=== PATIENT | male | born 1975 | race Caucasian/White ===

== ENCOUNTER 2022-01-28 15:14 | Inpatient (IN) | payer OTHER ==
[~2022-01-28] VITALS: Ht 175.3 cm; Wt 80.1 kg
[2022-01-28 16:38] VITALS: BP 133/82
[2022-01-28] MEDS ORDERED: ACETAMINOPHEN 650 MG/20.3 ML SOLUTION UDCUP PEG PRN (19:15)
[2022-01-28] MEDS: DOCUSATE SODIUM 100 MG/10 ML LIQUID UDCUP PEG SCH ×2 (21:00→21:32)
[2022-01-28] MEDS: SENNA 218 MG/5 ML LIQUID ORAL.SYG PEG SCH (21:00)
[2022-01-28] MEDS: OXYGEN THERAPY IH SCH (21:31)
[2022-01-28] MEDS: MELATONIN 3 MG TABLET PEG PRN (21:31)
[2022-01-28] MEDS: LevETIRAcetam 100 MG/ML 5 ML SOLUTION UDCUP PEG SCH (21:32)
[2022-01-28] MEDS: ETHYL ALCOHOL 62% ANTISEPTIC NASAL SANITIZER 0.6 ML AMPUL NASAL SCH (21:32)
[2022-01-28 23:43] VITALS: BP 133/82
[2022-01-29] VITALS (7 sets, daily range): BP systolic 117–142; BP diastolic 68–95
[2022-01-29] MEDS ORDERED: CloNIDine HCL 0.1 MG TABLET PEG PRN
[2022-01-29] MEDS ORDERED: HEPARIN SODIUM,PORCINE 5,000 UNITS/ML VIAL SQ SCH
[2022-01-29] MEDS ORDERED: PNEUMOCOCCAL VACCINE POLYVALENT 0.5 ML VIAL [PPSV23] IM. ONE (00:15)
[2022-01-29 07:01] LABS: BASOPHILS % (AUTO) 0.5 % (0.0-2.0); EOSINOPHILS % (AUTO) 3.6 % (1.0-6.0); HEMATOCRIT 31.9 % (41-53); HEMOGLOBIN 10.9 g/dL (13.5-17.5); LYMPHOCYTES # (AUTO) 3.4 K/uL (1.0-4.8); LYMPHOCYTES % (AUTO) 33.7 % (22.0-44.0); MEAN CORPUSCULAR HEMOGLOBIN 29.5 pg (26.0-34.0); MEAN CORPUSCULAR HGB CONC 34.2 G/dL (31.0-37.0); MEAN CORPUSCULAR VOLUME 86 fL (80-100); MONOCYTES # (AUTO) 0.9 K/uL (0.1-1.0); MONOCYTES % (AUTO) 8.8 % (2.0-9.0); NEUTROPHILS # (AUTO) 5.3 K/uL (1.8-7.7); NEUTROPHILS % (AUTO) 53.4 % (40.0-70.0); PLATELET COUNT (AUTO) 353 K/uL (150-450); RED CELL DISTRIBUTION WIDTH 16.3 % (11.5-14.5)
[2022-01-29 07:15] LABS: ALBUMIN 3.4 g/dL (3.4-5.0); BILIRUBIN,TOTAL 0.4 mg/dL (0.1-1.0); CREATININE 8.26 mg/dL (0.60-1.30); POTASSIUM 5.1 mmol/L (3.5-5.1); TOTAL PROTEIN, SERUM 9.3 g/dL (6.4-8.2)
[2022-01-29 07:21] LABS: CALCIUM, TOTAL 11.9 mg/dL (8.8-10.5)
[2022-01-29] MEDS: LevETIRAcetam 100 MG/ML 5 ML SOLUTION UDCUP PEG SCH ×2 (08:18→21:44)
[2022-01-29] MEDS: PYRIDOXINE HCL 50 MG TABLET PEG SCH (08:19)
[2022-01-29] MEDS: FOLIC ACID 1 MG TABLET PEG SCH (08:19)
[2022-01-29] MEDS: DOCUSATE SODIUM 100 MG/10 ML LIQUID UDCUP PEG SCH ×2 (08:20→21:44)
[2022-01-29] MEDS: LANSOPRAZOLE 30 MG SOLUBLE TABLET PEG SCH (08:21)
[2022-01-29] MEDS: ETHYL ALCOHOL 62% ANTISEPTIC NASAL SANITIZER 0.6 ML AMPUL NASAL SCH ×2 (08:22→21:49)
[2022-01-29] MEDS: OXYGEN THERAPY IH SCH ×2 (08:22→21:49)
[2022-01-29] MEDS: AmLODIPine BESYLATE 10 MG TABLET PEG SCH (08:22)
[2022-01-29] MEDS: ASPIRIN 81 MG CHEWABLE TABLET PEG SCH (08:25)
[2022-01-29] MEDS: ATORVASTATIN CALCIUM 20 MG TABLET PEG SCH (08:25)
[2022-01-29] MEDS: HEPARIN SODIUM,PORCINE 5,000 UNITS/ML VIAL SQ SCH ×2 (08:26→21:45)
[2022-01-29] MEDS ORDERED: FOLIC ACID 1 MG TABLET PEG SCH (09:00)
[2022-01-29] MEDS ORDERED: EPOETIN ALFA 10,000 UNITS/ML 2 ML VIAL SQ SCH (09:00)
[2022-01-29] MEDS ORDERED: HEPARIN SODIUM,PORCINE 1,000 UNITS/ML VIAL IVP ONE (12:00)
[2022-01-29] MEDS ORDERED: SODIUM CHLORIDE 0.9% 1,000 ML ONE ×2 (16:42)
[2022-01-29] MEDS: SENNA 218 MG/5 ML LIQUID ORAL.SYG PEG SCH (21:00)
[2022-01-29] MEDS: MELATONIN 3 MG TABLET PEG PRN (21:45)
[2022-01-29] MEDS: CHLORHEXIDINE GLUCONATE 4% 118 ML TOPICAL LIQUID TP SCH (21:46)
[2022-01-29] MEDS ORDERED: HEPARIN SODIUM,PORCINE 1,000 UNITS/ML VIAL IVCATH ONE ×2 (22:15)
[2022-01-30 01:00] VITALS: BP 131/89
[2022-01-30 06:34] LABS: HEMOGLOBIN A1C 5.6 % (3.8-5.6)
[2022-01-30 06:51] LABS: PHOSPHORUS 3.6 mg/dL (2.5-4.9)
[2022-01-30] MEDS: LevETIRAcetam 100 MG/ML 5 ML SOLUTION UDCUP PEG SCH ×2 (08:23→21:25)
[2022-01-30] MEDS: ETHYL ALCOHOL 62% ANTISEPTIC NASAL SANITIZER 0.6 ML AMPUL NASAL SCH ×2 (08:23→21:24)
[2022-01-30] MEDS: FOLIC ACID 1 MG TABLET PEG SCH (08:24)
[2022-01-30] MEDS: LANSOPRAZOLE 30 MG SOLUBLE TABLET PEG SCH (08:24)
[2022-01-30] MEDS: DOCUSATE SODIUM 100 MG/10 ML LIQUID UDCUP PEG SCH ×2 (08:24→21:00)
[2022-01-30] MEDS: PYRIDOXINE HCL 50 MG TABLET PEG SCH (08:24)
[2022-01-30] MEDS: ASPIRIN 81 MG CHEWABLE TABLET PEG SCH (08:25)
[2022-01-30] MEDS: HEPARIN SODIUM,PORCINE 5,000 UNITS/ML VIAL SQ SCH ×2 (08:25→21:24)
[2022-01-30] MEDS: AmLODIPine BESYLATE 10 MG TABLET PEG SCH (08:25)
[2022-01-30] MEDS: OXYGEN THERAPY IH SCH ×2 (08:26→21:25)
[2022-01-30] MEDS: ATORVASTATIN CALCIUM 20 MG TABLET PEG SCH (08:26)
[2022-01-30 10:46] VITALS: BP 118/76
[2022-01-30 11:15] LABS: APPEARANCE,URINE CLEAR (CLEAR); BILIRUBIN,URINE NEGATIVE (NEGATIVE); GLUCOSE, URINE (UA) NEGATIVE (NEGATIVE); KETONES,URINE NEGATIVE (NEGATIVE); LEUKOCYTE ESTERASE ,URINE TRACE (NEGATIVE); NITRATE,URINE NEGATIVE (NEGATIVE); OCCULT BLOOD,URINE SMALL (NEGATIVE); PROTEIN,URINE >600,SEE CONFIRM mg/dL (NEGATIVE); SPECIFIC GRAVITIY, URINE 1.023 (1.003-1.030); UROBILINOGEN,URINE <=1.0 mg/dL (<=1.0)
[2022-01-30 11:16] LABS: CREATININE,URINE RANDOM 125.4 mg/dL (30.0-125.0)
[2022-01-30 11:31] LABS: BACTERIA,URINE None Seen /HPF (None Seen); RBC,URINE 0-2 /HPF (0-2); SQUAMOUS EPITHELIAL CELL,UR Few /LPF (None Seen); SULFOSALICYLIC ACID,URINE 3+ (Negative); WBC,URINE 0-2 /HPF (0-5)
[2022-01-30 16:30] VITALS: BP 124/86
[2022-01-30] MEDS: SENNA 218 MG/5 ML LIQUID ORAL.SYG PEG SCH (21:00)
[2022-01-30] MEDS: CHLORHEXIDINE GLUCONATE 4% 118 ML TOPICAL LIQUID TP SCH (21:23)
[2022-01-31] VITALS (11 sets, daily range): BP systolic 112–138; BP diastolic 63–86
[2022-01-31] MEDS: OXYGEN THERAPY IH SCH ×2 (08:17→21:19)
[2022-01-31] MEDS: ATORVASTATIN CALCIUM 20 MG TABLET PEG SCH (08:18)
[2022-01-31] MEDS: ASPIRIN 81 MG CHEWABLE TABLET PEG SCH (08:18)
[2022-01-31] MEDS: AmLODIPine BESYLATE 10 MG TABLET PEG SCH (08:18)
[2022-01-31] MEDS: HEPARIN SODIUM,PORCINE 5,000 UNITS/ML VIAL SQ SCH ×2 (08:18→21:18)
[2022-01-31] MEDS: DOCUSATE SODIUM 100 MG/10 ML LIQUID UDCUP PEG SCH ×2 (08:19→21:00)
[2022-01-31] MEDS: LevETIRAcetam 100 MG/ML 5 ML SOLUTION UDCUP PEG SCH ×2 (08:19→21:19)
[2022-01-31] MEDS: LANSOPRAZOLE 30 MG SOLUBLE TABLET PEG SCH (08:20)
[2022-01-31] MEDS: PYRIDOXINE HCL 50 MG TABLET PEG SCH (08:20)
[2022-01-31] MEDS: ETHYL ALCOHOL 62% ANTISEPTIC NASAL SANITIZER 0.6 ML AMPUL NASAL SCH ×2 (08:21→21:20)
[2022-01-31] MEDS: FOLIC ACID 1 MG TABLET PEG SCH (08:21)
[2022-01-31 09:48] LABS: POTASSIUM 4.5 mmol/L (3.5-5.1)
[2022-01-31 09:49] LABS: CREATININE 7.83 mg/dL (0.60-1.30)
[2022-01-31 09:51] LABS: CALCIUM, TOTAL 11.7 mg/dL (8.8-10.5)
[2022-01-31] MEDS ORDERED: HEPARIN SODIUM,PORCINE 1,000 UNITS/ML VIAL IVP ONE (12:00)
[2022-01-31] MEDS ORDERED: SODIUM CHLORIDE 0.9% 1,000 ML ONE ×2 (12:47→13:05)
[2022-01-31] MEDS ORDERED: HEPARIN SODIUM,PORCINE 1,000 UNITS/ML VIAL IVCATH ONE ×2 (15:15)
[2022-01-31] MEDS: SENNA 218 MG/5 ML LIQUID ORAL.SYG PEG SCH (21:00)
[2022-01-31] MEDS: MELATONIN 3 MG TABLET PEG PRN (21:18)
[2022-01-31] MEDS: CHLORHEXIDINE GLUCONATE 4% 118 ML TOPICAL LIQUID TP SCH (21:19)
[2022-02-01 00:47] VITALS: BP 115/72
[2022-02-01] MEDS: ASPIRIN 81 MG CHEWABLE TABLET PEG SCH (08:21)
[2022-02-01] MEDS: AmLODIPine BESYLATE 10 MG TABLET PEG SCH (08:21)
[2022-02-01] MEDS: ATORVASTATIN CALCIUM 20 MG TABLET PEG SCH (08:21)
[2022-02-01] MEDS: HEPARIN SODIUM,PORCINE 5,000 UNITS/ML VIAL SQ SCH ×2 (08:21→21:29)
[2022-02-01] MEDS: DOCUSATE SODIUM 100 MG/10 ML LIQUID UDCUP PEG SCH ×2 (08:22→21:32)
[2022-02-01] MEDS: LevETIRAcetam 100 MG/ML 5 ML SOLUTION UDCUP PEG SCH ×2 (08:22→21:31)
[2022-02-01] MEDS: LANSOPRAZOLE 30 MG SOLUBLE TABLET PEG SCH (08:23)
[2022-02-01] MEDS: FOLIC ACID 1 MG TABLET PEG SCH (08:23)
[2022-02-01] MEDS: ETHYL ALCOHOL 62% ANTISEPTIC NASAL SANITIZER 0.6 ML AMPUL NASAL SCH ×2 (08:24→21:31)
[2022-02-01] MEDS: PYRIDOXINE HCL 50 MG TABLET PEG SCH (08:24)
[2022-02-01 08:25] LABS: CALCIUM, TOTAL 10.8 mg/dL (8.8-10.5); CREATININE 5.29 mg/dL (0.60-1.30); POTASSIUM 4.4 mmol/L (3.5-5.1)
[2022-02-01] MEDS: OXYGEN THERAPY IH SCH ×2 (08:25→21:30)
[2022-02-01 08:30] VITALS: BP 123/68
[2022-02-01 16:30] VITALS: BP 112/61
[2022-02-01] MEDS: SENNA 218 MG/5 ML LIQUID ORAL.SYG PEG SCH (21:00)
[2022-02-01] MEDS: CHLORHEXIDINE GLUCONATE 4% 118 ML TOPICAL LIQUID TP SCH (21:32)
[2022-02-02] VITALS: BP 113/70
[2022-02-02] MEDS: FOLIC ACID 1 MG TABLET PEG SCH (08:17)
[2022-02-02] MEDS: ETHYL ALCOHOL 62% ANTISEPTIC NASAL SANITIZER 0.6 ML AMPUL NASAL SCH ×2 (08:17→21:46)
[2022-02-02] MEDS: OXYGEN THERAPY IH SCH ×2 (08:17→21:47)
[2022-02-02] MEDS: PYRIDOXINE HCL 50 MG TABLET PEG SCH (08:18)
[2022-02-02] MEDS: AmLODIPine BESYLATE 10 MG TABLET PEG SCH (08:18)
[2022-02-02] MEDS: LANSOPRAZOLE 30 MG SOLUBLE TABLET PEG SCH (08:18)
[2022-02-02] MEDS: ATORVASTATIN CALCIUM 20 MG TABLET PEG SCH (08:18)
[2022-02-02] MEDS: LevETIRAcetam 100 MG/ML 5 ML SOLUTION UDCUP PEG SCH ×2 (08:18→21:46)
[2022-02-02] MEDS: ASPIRIN 81 MG CHEWABLE TABLET PEG SCH (08:18)
[2022-02-02] MEDS: HEPARIN SODIUM,PORCINE 5,000 UNITS/ML VIAL SQ SCH ×2 (08:19→21:46)
[2022-02-02] MEDS: DOCUSATE SODIUM 100 MG/10 ML LIQUID UDCUP PEG SCH ×2 (08:19→21:46)
[2022-02-02 10:25] VITALS: BP 133/76
[2022-02-02 13:06] LABS: ALPHA-1 (IFE & PEP) 0.3 g/dL (0.0-0.4); BETA (IFE & ELP) 0.8 g/dL (0.7-1.3); GAMMA GLOBULINS (IFE & ELP) 2.1 g/dL (0.4-1.8); IGM (IMMUNOFIXATION) 144 mg/dL (20-172)
[2022-02-02 16:30] VITALS: BP 126/61
[2022-02-02] MEDS: SENNA 218 MG/5 ML LIQUID ORAL.SYG PEG SCH (21:00)
[2022-02-02] MEDS: CHLORHEXIDINE GLUCONATE 4% 118 ML TOPICAL LIQUID TP SCH (21:48)
[2022-02-03] VITALS (13 sets, daily range): BP systolic 107–147; BP diastolic 70–96
[2022-02-03] MEDS: DOCUSATE SODIUM 100 MG/10 ML LIQUID UDCUP PEG SCH ×2 (10:15→21:18)
[2022-02-03] MEDS: PYRIDOXINE HCL 50 MG TABLET PEG SCH (10:15)
[2022-02-03] MEDS: LevETIRAcetam 100 MG/ML 5 ML SOLUTION UDCUP PEG SCH ×2 (10:15→21:18)
[2022-02-03] MEDS: LANSOPRAZOLE 30 MG SOLUBLE TABLET PEG SCH (10:15)
[2022-02-03] MEDS: FOLIC ACID 1 MG TABLET PEG SCH (10:16)
[2022-02-03] MEDS: ASPIRIN 81 MG CHEWABLE TABLET PEG SCH (10:16)
[2022-02-03] MEDS: HEPARIN SODIUM,PORCINE 5,000 UNITS/ML VIAL SQ SCH ×2 (10:17→21:18)
[2022-02-03] MEDS: ETHYL ALCOHOL 62% ANTISEPTIC NASAL SANITIZER 0.6 ML AMPUL NASAL SCH ×2 (10:17→21:17)
[2022-02-03] MEDS ORDERED: HEPARIN SODIUM,PORCINE 1,000 UNITS/ML VIAL IVP ONE (12:00)
[2022-02-03] MEDS: OXYGEN THERAPY IH SCH ×2 (13:26→21:25)
[2022-02-03] MEDS: ATORVASTATIN CALCIUM 20 MG TABLET PEG SCH (13:27)
[2022-02-03] MEDS: AmLODIPine BESYLATE 10 MG TABLET PEG SCH (13:27)
[2022-02-03] MEDS ORDERED: SODIUM CHLORIDE 0.9% 1,000 ML ONE ×2 (15:43)
[2022-02-03] MEDS: SENNA 218 MG/5 ML LIQUID ORAL.SYG PEG SCH (21:00)
[2022-02-03] MEDS: CHLORHEXIDINE GLUCONATE 4% 118 ML TOPICAL LIQUID TP SCH (21:26)
[2022-02-03] MEDS: MELATONIN 3 MG TABLET PEG PRN (22:08)
[2022-02-04 01:06] VITALS: BP 119/76
[2022-02-04 07:01] LABS: CALCIUM, TOTAL 10.4 mg/dL (8.8-10.5); CREATININE 5.16 mg/dL (0.60-1.30); POTASSIUM 4.3 mmol/L (3.5-5.1)
[2022-02-04] MEDS: ETHYL ALCOHOL 62% ANTISEPTIC NASAL SANITIZER 0.6 ML AMPUL NASAL SCH ×2 (07:46→21:05)
[2022-02-04] MEDS: ASPIRIN 81 MG CHEWABLE TABLET PEG SCH (07:47)
[2022-02-04] MEDS: DOCUSATE SODIUM 100 MG/10 ML LIQUID UDCUP PEG SCH ×2 (07:48→21:00)
[2022-02-04] MEDS: LevETIRAcetam 100 MG/ML 5 ML SOLUTION UDCUP PEG SCH ×2 (07:48→21:04)
[2022-02-04] MEDS: FOLIC ACID 1 MG TABLET PEG SCH (07:48)
[2022-02-04] MEDS: ATORVASTATIN CALCIUM 20 MG TABLET PEG SCH (07:49)
[2022-02-04] MEDS: PYRIDOXINE HCL 50 MG TABLET PEG SCH (07:50)
[2022-02-04] MEDS: LANSOPRAZOLE 30 MG SOLUBLE TABLET PEG SCH (07:51)
[2022-02-04] MEDS: HEPARIN SODIUM,PORCINE 5,000 UNITS/ML VIAL SQ SCH ×2 (07:51→21:04)
[2022-02-04 08:30] VITALS: BP 102/63
[2022-02-04] MEDS: AmLODIPine BESYLATE 10 MG TABLET PEG SCH (09:00)
[2022-02-04 09:55] VITALS: BP 109/59
[2022-02-04 16:17] VITALS: BP 122/64
[2022-02-04] MEDS: SENNA 218 MG/5 ML LIQUID ORAL.SYG PEG SCH (21:00)
[2022-02-04] MEDS: MELATONIN 3 MG TABLET PEG PRN (21:03)
[2022-02-04] MEDS: CHLORHEXIDINE GLUCONATE 4% 118 ML TOPICAL LIQUID TP SCH (21:06)
[2022-02-05] VITALS (14 sets, daily range): BP systolic 99–129; BP diastolic 57–82
[2022-02-05] MEDS: LevETIRAcetam 100 MG/ML 5 ML SOLUTION UDCUP PEG SCH ×2 (08:29→21:23)
[2022-02-05] MEDS: PYRIDOXINE HCL 50 MG TABLET PEG SCH (08:30)
[2022-02-05] MEDS: FOLIC ACID 1 MG TABLET PEG SCH (08:30)
[2022-02-05] MEDS: LANSOPRAZOLE 30 MG SOLUBLE TABLET PEG SCH (08:30)
[2022-02-05] MEDS: ASPIRIN 81 MG CHEWABLE TABLET PEG SCH (08:30)
[2022-02-05] MEDS: DOCUSATE SODIUM 100 MG/10 ML LIQUID UDCUP PEG SCH ×2 (08:30→21:00)
[2022-02-05] MEDS: ETHYL ALCOHOL 62% ANTISEPTIC NASAL SANITIZER 0.6 ML AMPUL NASAL SCH ×2 (08:31→21:23)
[2022-02-05] MEDS: AmLODIPine BESYLATE 10 MG TABLET PEG SCH (08:31)
[2022-02-05] MEDS: HEPARIN SODIUM,PORCINE 5,000 UNITS/ML VIAL SQ SCH ×2 (08:31→21:21)
[2022-02-05] MEDS: ATORVASTATIN CALCIUM 20 MG TABLET PEG SCH (08:31)
[2022-02-05] MEDS ORDERED: SODIUM CHLORIDE 0.9% 1,000 ML ONE (14:26)
[2022-02-05] MEDS: SENNA 218 MG/5 ML LIQUID ORAL.SYG PEG SCH (21:00)
[2022-02-05] MEDS: CHLORHEXIDINE GLUCONATE 4% 118 ML TOPICAL LIQUID TP SCH (21:22)
[2022-02-05] MEDS: MELATONIN 3 MG TABLET PEG PRN (21:28)
[2022-02-06 07:46] VITALS: BP 103/72
[2022-02-06] MEDS: ATORVASTATIN CALCIUM 20 MG TABLET PEG SCH (08:54)
[2022-02-06] MEDS: FOLIC ACID 1 MG TABLET PEG SCH (08:54)
[2022-02-06] MEDS: HEPARIN SODIUM,PORCINE 5,000 UNITS/ML VIAL SQ SCH ×2 (08:54→21:05)
[2022-02-06] MEDS: LANSOPRAZOLE 30 MG SOLUBLE TABLET PEG SCH (08:54)
[2022-02-06] MEDS: ASPIRIN 81 MG CHEWABLE TABLET PEG SCH (08:55)
[2022-02-06] MEDS: AmLODIPine BESYLATE 10 MG TABLET PEG SCH (08:55)
[2022-02-06] MEDS: LevETIRAcetam 100 MG/ML 5 ML SOLUTION UDCUP PEG SCH (08:55)
[2022-02-06] MEDS: PYRIDOXINE HCL 50 MG TABLET PEG SCH (08:55)
[2022-02-06] MEDS: ETHYL ALCOHOL 62% ANTISEPTIC NASAL SANITIZER 0.6 ML AMPUL NASAL SCH ×2 (08:56→21:03)
[2022-02-06] MEDS: DOCUSATE SODIUM 100 MG/10 ML LIQUID UDCUP PEG SCH (08:56)
[2022-02-06] MEDS ORDERED: BUMETANIDE 1 MG TABLET PEG SCH (09:00)
[2022-02-06] MEDS ORDERED: HEPARIN SODIUM,PORCINE 1,000 UNITS/ML VIAL IVP ONE (14:45)
[2022-02-06 16:30] VITALS: BP 127/64
[2022-02-06] MEDS ORDERED: MELATONIN 3 MG TABLET PO PRN (16:45)
[2022-02-06] MEDS ORDERED: CloNIDine HCL 0.1 MG TABLET PO PRN (18:00)
[2022-02-06] MEDS: SENNA 187 MG TABLET PO SCH (21:00)
[2022-02-06] MEDS: DOCUSATE SODIUM 100 MG CAPSULE PO SCH (21:00)
[2022-02-06] MEDS: LevETIRAcetam 500 MG TABLET PO SCH (21:03)
[2022-02-06] MEDS: CHLORHEXIDINE GLUCONATE 4% 118 ML TOPICAL LIQUID TP SCH (21:17)
[2022-02-07] VITALS (13 sets, daily range): BP systolic 105–122; BP diastolic 63–80
[2022-02-07 06:58] LABS: BASOPHILS % (AUTO) 0.3 % (0.0-2.0); HEMATOCRIT 28.4 % (41-53); HEMOGLOBIN 9.4 g/dL (13.5-17.5); LYMPHOCYTES # (AUTO) 2.9 K/uL (1.0-4.8); LYMPHOCYTES % (AUTO) 34.9 % (22.0-44.0); MEAN CORPUSCULAR HEMOGLOBIN 29.1 pg (26.0-34.0); MEAN CORPUSCULAR HGB CONC 33.3 G/dL (31.0-37.0); MEAN CORPUSCULAR VOLUME 87 fL (80-100); MONOCYTES # (AUTO) 0.9 K/uL (0.1-1.0); MONOCYTES % (AUTO) 11.2 % (2.0-9.0); NEUTROPHILS # (AUTO) 4.2 K/uL (1.8-7.7); NEUTROPHILS % (AUTO) 50.6 % (40.0-70.0); PLATELET COUNT (AUTO) 270 K/uL (150-450); RED BLOOD CELL COUNT(AUTO) 3.25 MIL/uL (4.50-5.90); RED CELL DISTRIBUTION WIDTH 16.6 % (11.5-14.5)
[2022-02-07 07:14] LABS: CALCIUM, TOTAL 10.4 mg/dL (8.8-10.5); CREATININE 7.02 mg/dL (0.60-1.30); POTASSIUM 4.7 mmol/L (3.5-5.1)
[2022-02-07] MEDS: LevETIRAcetam 500 MG TABLET PO SCH ×2 (08:09→20:27)
[2022-02-07] MEDS: ETHYL ALCOHOL 62% ANTISEPTIC NASAL SANITIZER 0.6 ML AMPUL NASAL SCH ×2 (08:09→20:27)
[2022-02-07] MEDS: ASPIRIN 81 MG CHEWABLE TABLET PO SCH (08:09)
[2022-02-07] MEDS: FOLIC ACID 1 MG TABLET PO SCH (08:09)
[2022-02-07] MEDS: PYRIDOXINE HCL 50 MG TABLET PO SCH (08:10)
[2022-02-07] MEDS: LANSOPRAZOLE 30 MG CAPSULE PO SCH (08:10)
[2022-02-07] MEDS: HEPARIN SODIUM,PORCINE 5,000 UNITS/ML VIAL SQ SCH ×2 (08:10→20:28)
[2022-02-07] MEDS: AmLODIPine BESYLATE 10 MG TABLET PO SCH (08:11)
[2022-02-07] MEDS: BUMETANIDE 1 MG TABLET PO SCH (08:11)
[2022-02-07] MEDS: ATORVASTATIN CALCIUM 20 MG TABLET PO SCH (08:12)
[2022-02-07] MEDS: DOCUSATE SODIUM 100 MG CAPSULE PO SCH ×2 (08:12→20:30)
[2022-02-07] MEDS ORDERED: SODIUM CHLORIDE 0.9% 1,000 ML ONE ×2 (13:21)
[2022-02-07] MEDS ORDERED: HEPARIN SODIUM,PORCINE 1,000 UNITS/ML VIAL IVCATH ONE ×2 (16:00)
[2022-02-07] MEDS: CHLORHEXIDINE GLUCONATE 4% 118 ML TOPICAL LIQUID TP SCH (20:29)
[2022-02-07] MEDS: SENNA 187 MG TABLET PO SCH (20:30)
[2022-02-08 06:20] VITALS: BP 103/68
[2022-02-08 08:06] LABS: FREE KAPPA LIGHT CHAINS,S 388.9 mg/L (3.3-19.4); FREE KAPPA/LAMBDA LT CHN RATIO 1.51 (0.26-1.65)
[2022-02-08] MEDS: ETHYL ALCOHOL 62% ANTISEPTIC NASAL SANITIZER 0.6 ML AMPUL NASAL SCH ×2 (08:15→20:04)
[2022-02-08] MEDS: FOLIC ACID 1 MG TABLET PO SCH (08:16)
[2022-02-08] MEDS: HEPARIN SODIUM,PORCINE 5,000 UNITS/ML VIAL SQ SCH ×2 (08:16→20:04)
[2022-02-08] MEDS: ASPIRIN 81 MG CHEWABLE TABLET PO SCH (08:16)
[2022-02-08] MEDS: PYRIDOXINE HCL 50 MG TABLET PO SCH (08:16)
[2022-02-08] MEDS: LevETIRAcetam 500 MG TABLET PO SCH (08:17)
[2022-02-08] MEDS: LANSOPRAZOLE 30 MG CAPSULE PO SCH (08:17)
[2022-02-08] MEDS: ATORVASTATIN CALCIUM 20 MG TABLET PO SCH (08:17)
[2022-02-08] MEDS: AmLODIPine BESYLATE 10 MG TABLET PO SCH (08:17)
[2022-02-08] MEDS: BUMETANIDE 1 MG TABLET PO SCH (08:17)
[2022-02-08] MEDS: DOCUSATE SODIUM 100 MG CAPSULE PO SCH ×2 (08:18→20:05)
[2022-02-08 08:43] VITALS: BP 103/62
[2022-02-08] MEDS ORDERED: MIDAZOLAM HCL 2 MG/2 ML VIAL IVP ONE (12:00)
[2022-02-08] MEDS ORDERED: FentaNYL CITRATE PF 100 MCG/2 ML VIAL IVP ONE (12:00)
[2022-02-08] MEDS ORDERED: KETAMINE HCL 50 MG/ML 10 ML VIAL IVP ONE (12:00)
[2022-02-08 16:07] VITALS: BP 101/63
[2022-02-08] MEDS: LevETIRAcetam 250 MG TABLET PO SCH (20:04)
[2022-02-08] MEDS: SENNA 187 MG TABLET PO SCH (20:05)
[2022-02-08] MEDS: CHLORHEXIDINE GLUCONATE 4% 118 ML TOPICAL LIQUID TP SCH (20:09)
[2022-02-09 00:54] VITALS: BP 115/69
[2022-02-09 08:30] VITALS: BP 121/79
[2022-02-09] MEDS: ETHYL ALCOHOL 62% ANTISEPTIC NASAL SANITIZER 0.6 ML AMPUL NASAL SCH ×2 (08:36→20:40)
[2022-02-09] MEDS: BUMETANIDE 1 MG TABLET PO SCH (08:37)
[2022-02-09] MEDS: DOCUSATE SODIUM 100 MG CAPSULE PO SCH ×2 (08:37→20:40)
[2022-02-09] MEDS: ASPIRIN 81 MG CHEWABLE TABLET PO SCH (08:37)
[2022-02-09] MEDS: FOLIC ACID 1 MG TABLET PO SCH (08:38)
[2022-02-09] MEDS: LevETIRAcetam 250 MG TABLET PO SCH ×2 (08:38→20:40)
[2022-02-09] MEDS: HEPARIN SODIUM,PORCINE 5,000 UNITS/ML VIAL SQ SCH ×2 (08:39→20:40)
[2022-02-09] MEDS: ATORVASTATIN CALCIUM 20 MG TABLET PO SCH (08:39)
[2022-02-09] MEDS: PYRIDOXINE HCL 50 MG TABLET PO SCH (08:40)
[2022-02-09] MEDS: LANSOPRAZOLE 30 MG CAPSULE PO SCH (08:40)
[2022-02-09] MEDS ORDERED: AmLODIPine BESYLATE 5 MG TABLET PO SCH (09:00)
[2022-02-09 16:30] VITALS: BP 115/75
[2022-02-09] MEDS: SENNA 187 MG TABLET PO SCH (20:40)
[2022-02-09] MEDS: CHLORHEXIDINE GLUCONATE 4% 118 ML TOPICAL LIQUID TP SCH (20:40)
[2022-02-10] VITALS (13 sets, daily range): BP systolic 106–140; BP diastolic 65–89
[2022-02-10] MEDS: ETHYL ALCOHOL 62% ANTISEPTIC NASAL SANITIZER 0.6 ML AMPUL NASAL SCH ×2 (08:04→20:35)
[2022-02-10] MEDS: DOCUSATE SODIUM 100 MG CAPSULE PO SCH ×2 (08:04→20:34)
[2022-02-10] MEDS: ASPIRIN 81 MG CHEWABLE TABLET PO SCH (08:04)
[2022-02-10] MEDS: BUMETANIDE 1 MG TABLET PO SCH (08:04)
[2022-02-10] MEDS: FOLIC ACID 1 MG TABLET PO SCH (08:05)
[2022-02-10] MEDS: LevETIRAcetam 250 MG TABLET PO SCH ×2 (08:06→20:37)
[2022-02-10] MEDS: ATORVASTATIN CALCIUM 20 MG TABLET PO SCH (08:06)
[2022-02-10] MEDS: PYRIDOXINE HCL 50 MG TABLET PO SCH (08:07)
[2022-02-10] MEDS: HEPARIN SODIUM,PORCINE 5,000 UNITS/ML VIAL SQ SCH ×2 (08:07→20:37)
[2022-02-10] MEDS: LANSOPRAZOLE 30 MG CAPSULE PO SCH (08:07)
[2022-02-10] MEDS: AmLODIPine BESYLATE 2.5 MG TABLET PO SCH (08:08)
[2022-02-10] MEDS ORDERED: HEPARIN SODIUM,PORCINE 1,000 UNITS/ML VIAL IVP ONE (14:48)
[2022-02-10] MEDS ORDERED: SODIUM CHLORIDE 0.9% 1,000 ML ONE ×2 (15:11)
[2022-02-10] MEDS ORDERED: HEPARIN SODIUM,PORCINE 1,000 UNITS/ML VIAL IVCATH ONE ×2 (18:30)
[2022-02-10] MEDS: SENNA 187 MG TABLET PO SCH (20:35)
[2022-02-10] MEDS: CHLORHEXIDINE GLUCONATE 4% 118 ML TOPICAL LIQUID TP SCH (20:37)
[2022-02-11 03:03] VITALS: BP 111/73
[2022-02-11 08:01] VITALS: BP 127/74
[2022-02-11] MEDS: AmLODIPine BESYLATE 2.5 MG TABLET PO SCH (08:11)
[2022-02-11] MEDS: ETHYL ALCOHOL 62% ANTISEPTIC NASAL SANITIZER 0.6 ML AMPUL NASAL SCH ×2 (08:11→21:34)
[2022-02-11] MEDS: ASPIRIN 81 MG CHEWABLE TABLET PO SCH (08:11)
[2022-02-11] MEDS: BUMETANIDE 1 MG TABLET PO SCH (08:12)
[2022-02-11] MEDS: PYRIDOXINE HCL 50 MG TABLET PO SCH (08:12)
[2022-02-11] MEDS: HEPARIN SODIUM,PORCINE 5,000 UNITS/ML VIAL SQ SCH ×2 (08:12→21:34)
[2022-02-11] MEDS: DOCUSATE SODIUM 100 MG CAPSULE PO SCH ×2 (08:12→21:00)
[2022-02-11] MEDS: LevETIRAcetam 250 MG TABLET PO SCH ×2 (08:13→21:35)
[2022-02-11] MEDS: LANSOPRAZOLE 30 MG CAPSULE PO SCH (08:13)
[2022-02-11] MEDS: ATORVASTATIN CALCIUM 20 MG TABLET PO SCH (08:13)
[2022-02-11] MEDS: FOLIC ACID 1 MG TABLET PO SCH (08:13)
[2022-02-11 16:30] VITALS: BP 138/77
[2022-02-11] MEDS: SENNA 187 MG TABLET PO SCH (21:00)
[2022-02-11] MEDS: CHLORHEXIDINE GLUCONATE 4% 118 ML TOPICAL LIQUID TP SCH (21:35)
[2022-02-12] VITALS (13 sets, daily range): BP systolic 116–135; BP diastolic 67–89
[2022-02-12] MEDS: ASPIRIN 81 MG CHEWABLE TABLET PO SCH (08:36)
[2022-02-12] MEDS: LANSOPRAZOLE 30 MG CAPSULE PO SCH (08:36)
[2022-02-12] MEDS: PYRIDOXINE HCL 50 MG TABLET PO SCH (08:36)
[2022-02-12] MEDS: FOLIC ACID 1 MG TABLET PO SCH (08:36)
[2022-02-12] MEDS: DOCUSATE SODIUM 100 MG CAPSULE PO SCH ×2 (08:37→20:13)
[2022-02-12] MEDS: HEPARIN SODIUM,PORCINE 5,000 UNITS/ML VIAL SQ SCH ×2 (08:37→20:15)
[2022-02-12] MEDS: BUMETANIDE 1 MG TABLET PO SCH (08:37)
[2022-02-12] MEDS: ETHYL ALCOHOL 62% ANTISEPTIC NASAL SANITIZER 0.6 ML AMPUL NASAL SCH ×2 (08:37→20:15)
[2022-02-12] MEDS: ATORVASTATIN CALCIUM 20 MG TABLET PO SCH (08:37)
[2022-02-12] MEDS: LevETIRAcetam 250 MG TABLET PO SCH ×2 (08:37→20:14)
[2022-02-12] MEDS ORDERED: SODIUM CHLORIDE 0.9% 2,000 ML ONE (15:05)
[2022-02-12] MEDS: SENNA 187 MG TABLET PO SCH (20:13)
[2022-02-12] MEDS: CHLORHEXIDINE GLUCONATE 4% 118 ML TOPICAL LIQUID TP SCH (20:15)
[2022-02-12] MEDS ORDERED: HEPARIN SODIUM,PORCINE 1,000 UNITS/ML VIAL IVP ONE (23:16)
[2022-02-13 05:27] VITALS: BP 115/77
[2022-02-13 08:05] VITALS: BP 119/67
[2022-02-13] MEDS: ETHYL ALCOHOL 62% ANTISEPTIC NASAL SANITIZER 0.6 ML AMPUL NASAL SCH ×2 (08:31→20:40)
[2022-02-13] MEDS: BUMETANIDE 1 MG TABLET PO SCH (08:32)
[2022-02-13] MEDS: ASPIRIN 81 MG CHEWABLE TABLET PO SCH (08:32)
[2022-02-13] MEDS: ATORVASTATIN CALCIUM 20 MG TABLET PO SCH (08:32)
[2022-02-13] MEDS: LevETIRAcetam 250 MG TABLET PO SCH ×2 (08:32→20:40)
[2022-02-13] MEDS: FOLIC ACID 1 MG TABLET PO SCH (08:32)
[2022-02-13] MEDS: LANSOPRAZOLE 30 MG CAPSULE PO SCH (08:33)
[2022-02-13] MEDS: DOCUSATE SODIUM 100 MG CAPSULE PO SCH ×2 (08:33→20:42)
[2022-02-13] MEDS: HEPARIN SODIUM,PORCINE 5,000 UNITS/ML VIAL SQ SCH ×2 (08:33→20:41)
[2022-02-13] MEDS: PYRIDOXINE HCL 50 MG TABLET PO SCH (08:33)
[2022-02-13 16:07] VITALS: BP 124/63
[2022-02-13] MEDS: SENNA 187 MG TABLET PO SCH (20:42)
[2022-02-13] MEDS: CHLORHEXIDINE GLUCONATE 4% 118 ML TOPICAL LIQUID TP SCH (20:42)
[2022-02-14] VITALS (13 sets, daily range): BP systolic 118–141; BP diastolic 68–93
[2022-02-14] MEDS: DOCUSATE SODIUM 100 MG CAPSULE PO SCH ×2 (09:00→20:24)
[2022-02-14] MEDS: ETHYL ALCOHOL 62% ANTISEPTIC NASAL SANITIZER 0.6 ML AMPUL NASAL SCH ×2 (09:14→20:23)
[2022-02-14] MEDS: ASPIRIN 81 MG CHEWABLE TABLET PO SCH (09:14)
[2022-02-14] MEDS: LANSOPRAZOLE 30 MG CAPSULE PO SCH (09:14)
[2022-02-14] MEDS: LevETIRAcetam 250 MG TABLET PO SCH ×2 (09:15→20:24)
[2022-02-14] MEDS: FOLIC ACID 1 MG TABLET PO SCH (09:15)
[2022-02-14] MEDS: PYRIDOXINE HCL 50 MG TABLET PO SCH (09:15)
[2022-02-14] MEDS: BUMETANIDE 1 MG TABLET PO SCH (09:15)
[2022-02-14] MEDS: ATORVASTATIN CALCIUM 20 MG TABLET PO SCH (09:15)
[2022-02-14] MEDS: HEPARIN SODIUM,PORCINE 5,000 UNITS/ML VIAL SQ SCH ×2 (09:16→20:24)
[2022-02-14 09:38] LABS: BASOPHILS % (AUTO) 0.2 % (0.0-2.0); EOSINOPHILS % (AUTO) 1.7 % (1.0-6.0); HEMATOCRIT 28.7 % (41-53); HEMOGLOBIN 9.7 g/dL (13.5-17.5); LYMPHOCYTES # (AUTO) 2.5 K/uL (1.0-4.8); LYMPHOCYTES % (AUTO) 33.9 % (22.0-44.0); MEAN CORPUSCULAR HEMOGLOBIN 29.4 pg (26.0-34.0); MEAN CORPUSCULAR HGB CONC 33.8 G/dL (31.0-37.0); MEAN CORPUSCULAR VOLUME 87 fL (80-100); MONOCYTES # (AUTO) 0.6 K/uL (0.1-1.0); MONOCYTES % (AUTO) 8.1 % (2.0-9.0); NEUTROPHILS # (AUTO) 4.2 K/uL (1.8-7.7); NEUTROPHILS % (AUTO) 56.1 % (40.0-70.0); PLATELET COUNT (AUTO) 313 K/uL (150-450); RED BLOOD CELL COUNT(AUTO) 3.31 MIL/uL (4.50-5.90); RED CELL DISTRIBUTION WIDTH 16.3 % (11.5-14.5)
[2022-02-14 09:47] LABS: CALCIUM, TOTAL 9.9 mg/dL (8.8-10.5); CREATININE 6.35 mg/dL (0.60-1.30); POTASSIUM 5.2 mmol/L (3.5-5.1)
[2022-02-14] MEDS ORDERED: HEPARIN SODIUM,PORCINE 1,000 UNITS/ML VIAL IVP ONE (12:00)
[2022-02-14] MEDS ORDERED: SODIUM CHLORIDE 0.9% 2,000 ML ONE (12:38)
[2022-02-14] MEDS ORDERED: HEPARIN SODIUM,PORCINE 1,000 UNITS/ML VIAL IVCATH ONE ×2 (13:30)
[2022-02-14] MEDS: SENNA 187 MG TABLET PO SCH (20:24)
[2022-02-14] MEDS: CHLORHEXIDINE GLUCONATE 4% 118 ML TOPICAL LIQUID TP SCH (20:25)
[2022-02-15] VITALS: BP 125/71
[2022-02-15 08:00] VITALS: BP 125/77
[2022-02-15] MEDS: ETHYL ALCOHOL 62% ANTISEPTIC NASAL SANITIZER 0.6 ML AMPUL NASAL SCH ×2 (08:32→20:07)
[2022-02-15] MEDS: BUMETANIDE 1 MG TABLET PO SCH (08:33)
[2022-02-15] MEDS: FOLIC ACID 1 MG TABLET PO SCH (08:33)
[2022-02-15] MEDS: ASPIRIN 81 MG CHEWABLE TABLET PO SCH (08:33)
[2022-02-15] MEDS: LevETIRAcetam 250 MG TABLET PO SCH ×2 (08:33→20:07)
[2022-02-15] MEDS: ATORVASTATIN CALCIUM 20 MG TABLET PO SCH (08:33)
[2022-02-15] MEDS: LANSOPRAZOLE 30 MG CAPSULE PO SCH (08:33)
[2022-02-15] MEDS: PYRIDOXINE HCL 50 MG TABLET PO SCH (08:33)
[2022-02-15] MEDS: HEPARIN SODIUM,PORCINE 5,000 UNITS/ML VIAL SQ SCH ×2 (08:34→20:07)
[2022-02-15] MEDS: DOCUSATE SODIUM 100 MG CAPSULE PO SCH ×2 (09:00→20:08)
[2022-02-15 16:22] VITALS: BP 106/85
[2022-02-15] MEDS: CHLORHEXIDINE GLUCONATE 4% 118 ML TOPICAL LIQUID TP SCH (20:08)
[2022-02-15] MEDS: SENNA 187 MG TABLET PO SCH (20:08)
[2022-02-16] VITALS: BP 128/76
[2022-02-16] MEDS: ETHYL ALCOHOL 62% ANTISEPTIC NASAL SANITIZER 0.6 ML AMPUL NASAL SCH ×2 (07:59→20:56)
[2022-02-16] MEDS: PYRIDOXINE HCL 50 MG TABLET PO SCH (08:00)
[2022-02-16] MEDS: DOCUSATE SODIUM 100 MG CAPSULE PO SCH ×2 (08:00→20:58)
[2022-02-16] MEDS: ASPIRIN 81 MG CHEWABLE TABLET PO SCH (08:00)
[2022-02-16] MEDS: FOLIC ACID 1 MG TABLET PO SCH (08:00)
[2022-02-16] MEDS: LANSOPRAZOLE 30 MG CAPSULE PO SCH (08:00)
[2022-02-16] MEDS: BUMETANIDE 1 MG TABLET PO SCH (08:01)
[2022-02-16] MEDS: ATORVASTATIN CALCIUM 20 MG TABLET PO SCH (08:01)
[2022-02-16] MEDS: LevETIRAcetam 250 MG TABLET PO SCH ×2 (08:01→20:56)
[2022-02-16] MEDS: HEPARIN SODIUM,PORCINE 5,000 UNITS/ML VIAL SQ SCH (08:01)
[2022-02-16 09:47] VITALS: BP 133/85
[2022-02-16 12:15] LABS: BASOPHILS % (AUTO) 0.3 % (0.0-2.0); EOSINOPHILS % (AUTO) 1.7 % (1.0-6.0); HEMATOCRIT 28.5 % (41-53); HEMOGLOBIN 9.5 g/dL (13.5-17.5); LYMPHOCYTES # (AUTO) 3.5 K/uL (1.0-4.8); LYMPHOCYTES % (AUTO) 39.9 % (22.0-44.0); MEAN CORPUSCULAR HEMOGLOBIN 29.3 pg (26.0-34.0); MEAN CORPUSCULAR HGB CONC 33.5 G/dL (31.0-37.0); MEAN CORPUSCULAR VOLUME 88 fL (80-100); MONOCYTES # (AUTO) 0.7 K/uL (0.1-1.0); MONOCYTES % (AUTO) 7.7 % (2.0-9.0); NEUTROPHILS # (AUTO) 4.4 K/uL (1.8-7.7); NEUTROPHILS % (AUTO) 50.4 % (40.0-70.0); PLATELET COUNT (AUTO) 336 K/uL (150-450); RED BLOOD CELL COUNT(AUTO) 3.26 MIL/uL (4.50-5.90); RED CELL DISTRIBUTION WIDTH 16.2 % (11.5-14.5)
[2022-02-16] MEDS ORDERED: LIDOCAINE/PF 1% 30 ML VIAL ONE (12:33)
[2022-02-16] MEDS ORDERED: HEPARIN SODIUM,PORCINE 5,000 UNITS/ML VIAL ONE (12:34)
[2022-02-16 12:38] LABS: PROTHROMBIN TIME 10.8 SEC (9.4-11.6)
[2022-02-16 12:38] LABS: COVID AG,FIA SOURCE NASAL SWAB
[2022-02-16 12:42] LABS: CALCIUM, TOTAL 10.1 mg/dL (8.8-10.5); CREATININE 6.2 mg/dL (0.60-1.30); POTASSIUM 4.9 mmol/L (3.5-5.1)
[2022-02-16] MEDS ORDERED: SODIUM CHLORIDE 0.9% 1,000 ML ONE (14:51)
[2022-02-16] MEDS ORDERED: MEPERIDINE-PF 25 MG/ML VIAL IVP PRN (17:15)
[2022-02-16] MEDS ORDERED: HYDROmorphone 2 MG/ML VIAL IVP PRN (17:15)
[2022-02-16] MEDS ORDERED: FentaNYL CITRATE PF 100 MCG/2 ML VIAL IVP PRN (17:15)
[2022-02-16 18:30] VITALS: BP 130/75
[2022-02-16] MEDS: OXYGEN THERAPY IH SCH (20:00)
[2022-02-16] MEDS: SENNA 187 MG TABLET PO SCH (20:59)
[2022-02-16] MEDS: CHLORHEXIDINE GLUCONATE 4% 118 ML TOPICAL LIQUID TP SCH (20:59)
[2022-02-16] MEDS ORDERED: HEPARIN SODIUM,PORCINE 1,000 UNITS/ML VIAL IVP ONE (22:50)
[2022-02-16] MEDS ORDERED: 0.9% SODIUM CHLORIDE 10 ML VIAL IV ONE (22:50)
[2022-02-17] VITALS (12 sets, daily range): BP systolic 112–138; BP diastolic 57–84
[2022-02-17] MEDS: OXYGEN THERAPY IH SCH ×2 (08:00→20:00)
[2022-02-17 08:35] LABS: BASOPHILS % (AUTO) 0.7 % (0.0-2.0); EOSINOPHILS % (AUTO) 1.7 % (1.0-6.0); HEMATOCRIT 26.8 % (41-53); HEMOGLOBIN 9.1 g/dL (13.5-17.5); MEAN CORPUSCULAR HEMOGLOBIN 29.9 pg (26.0-34.0); MEAN CORPUSCULAR VOLUME 88 fL (80-100); MONOCYTES # (AUTO) 0.4 K/uL (0.1-1.0); MONOCYTES % (AUTO) 6.9 % (2.0-9.0); NEUTROPHILS # (AUTO) 3.8 K/uL (1.8-7.7); NEUTROPHILS % (AUTO) 59.7 % (40.0-70.0); PLATELET COUNT (AUTO) 284 K/uL (150-450); RED BLOOD CELL COUNT(AUTO) 3.05 MIL/uL (4.50-5.90); RED CELL DISTRIBUTION WIDTH 16.1 % (11.5-14.5)
[2022-02-17] MEDS: DOCUSATE SODIUM 100 MG CAPSULE PO SCH ×2 (08:40→21:00)
[2022-02-17 08:46] LABS: CALCIUM, TOTAL 9.9 mg/dL (8.8-10.5); CREATININE 7.44 mg/dL (0.60-1.30); MAGNESIUM 1.7 mg/dL (1.80-2.40); PHOSPHORUS 3.6 mg/dL (2.5-4.9); POTASSIUM 5.1 mmol/L (3.5-5.1)
[2022-02-17] MEDS ORDERED: HEPARIN SODIUM,PORCINE 5,000 UNITS/ML VIAL SQ SCH (09:00)
[2022-02-17] MEDS: ETHYL ALCOHOL 62% ANTISEPTIC NASAL SANITIZER 0.6 ML AMPUL NASAL SCH ×2 (09:06→21:28)
[2022-02-17] MEDS: LANSOPRAZOLE 30 MG CAPSULE PO SCH (09:06)
[2022-02-17] MEDS: ACETAMINOPHEN 325 MG TABLET PO PRN (09:06)
[2022-02-17] MEDS: PYRIDOXINE HCL 50 MG TABLET PO SCH (09:06)
[2022-02-17] MEDS: ASPIRIN 81 MG CHEWABLE TABLET PO SCH (09:06)
[2022-02-17] MEDS: FOLIC ACID 1 MG TABLET PO SCH (09:07)
[2022-02-17] MEDS: ATORVASTATIN CALCIUM 20 MG TABLET PO SCH (09:07)
[2022-02-17] MEDS: BUMETANIDE 1 MG TABLET PO SCH (09:07)
[2022-02-17] MEDS: LevETIRAcetam 250 MG TABLET PO SCH ×2 (09:07→21:27)
[2022-02-17] MEDS ORDERED: SODIUM CHLORIDE 0.9% 2,000 ML ONE (12:29)
[2022-02-17] MEDS ORDERED: HEPARIN SODIUM,PORCINE 1,000 UNITS/ML VIAL IVP ONE (16:43)
[2022-02-17] MEDS ORDERED: HEPARIN SODIUM,PORCINE 1,000 UNITS/ML VIAL IVCATH ONE ×2 (20:30)
[2022-02-17] MEDS: SENNA 187 MG TABLET PO SCH (21:00)
[2022-02-17] MEDS: CHLORHEXIDINE GLUCONATE 4% 118 ML TOPICAL LIQUID TP SCH (21:28)
[2022-02-18] VITALS: BP 129/77
[2022-02-18] MEDS ORDERED: ASPI-1450 PO (00:52)
[2022-02-18] MEDS ORDERED: BUME1TAB34 PO (00:52)
[2022-02-18] MEDS ORDERED: ATOR20TA86 PO (00:52)
[2022-02-18] MEDS ORDERED: FOLI-130 PO ×2 (00:58→09:24)
[2022-02-18] MEDS ORDERED: PYRI-6 PO (00:58)
[2022-02-18] MEDS ORDERED: LEVE250T4 PO (00:58)
[2022-02-18] MEDS ORDERED: LANS30CA56 PO (00:58)
[2022-02-18 08:00] VITALS: BP 137/89
[2022-02-18] MEDS: OXYGEN THERAPY IH SCH ×2 (08:00→20:00)
[2022-02-18] MEDS: LANSOPRAZOLE 30 MG CAPSULE PO SCH (09:00)
[2022-02-18] MEDS: DOCUSATE SODIUM 100 MG CAPSULE PO SCH ×2 (09:00→20:32)
[2022-02-18] MEDS: FOLIC ACID 1 MG TABLET PO SCH (09:00)
[2022-02-18] MEDS: BUMETANIDE 1 MG TABLET PO SCH (09:00)
[2022-02-18] MEDS: ATORVASTATIN CALCIUM 20 MG TABLET PO SCH (09:00)
[2022-02-18] MEDS: LevETIRAcetam 250 MG TABLET PO SCH ×2 (09:00→20:34)
[2022-02-18] MEDS: ETHYL ALCOHOL 62% ANTISEPTIC NASAL SANITIZER 0.6 ML AMPUL NASAL SCH ×2 (09:00→20:32)
[2022-02-18] MEDS: PYRIDOXINE HCL 50 MG TABLET PO SCH (09:00)
[2022-02-18] MEDS ORDERED: SENN-187 PO (09:24)
[2022-02-18] MEDS ORDERED: PYRI-13 PO (09:24)
[2022-02-18] MEDS ORDERED: BUME1TAB6 PO (09:24)
[2022-02-18] MEDS ORDERED: DOCU-385 PO (09:24)
[2022-02-18] MEDS ORDERED: LANS30CA55 PO (09:24)
[2022-02-18] MEDS ORDERED: LEVE250T PO (09:24)
[2022-02-18] MEDS ORDERED: ATOR20TA65 PO (09:24)
[2022-02-18] MEDS ORDERED: FentaNYL CITRATE PF 100 MCG/2 ML VIAL ONE (14:35)
[2022-02-18] MEDS ORDERED: GELATIN SPONGE,ABSORBABLE 12-7 MM TP ONE (14:35)
[2022-02-18] MEDS ORDERED: NALOXONE HCL 0.4 MG/ML VIAL ONE (14:35)
[2022-02-18] MEDS ORDERED: FLUMAZENIL 0.1 MG/ML 5 ML VIAL IVP ONE (14:35)
[2022-02-18] MEDS ORDERED: MIDAZOLAM HCL 2 MG/2 ML VIAL ONE (14:35)
[2022-02-18] MEDS ORDERED: LIDOCAINE/PF 1% 30 ML VIAL ONE (14:36)
[2022-02-18] MEDS ORDERED: HEPARIN SODIUM,PORCINE 1,000 UNITS/ML 10 ML VIAL ONE (15:57)
[2022-02-18] MEDS ORDERED: METOPROLOL TARTRATE 5 MG/5 ML VIAL ONE ×2 (16:27→16:51)
[2022-02-18 17:50] VITALS: BP 119/83
[2022-02-18] MEDS ORDERED: MIDAZOLAM HCL 2 MG/2 ML VIAL IVP ONE ×2 (18:00)
[2022-02-18] MEDS ORDERED: METOPROLOL TARTRATE 5 MG/5 ML VIAL IVP ONE ×3 (18:00)
[2022-02-18] MEDS ORDERED: FentaNYL CITRATE PF 100 MCG/2 ML VIAL IVP ONE ×2 (18:00)
[2022-02-18] MEDS: CHLORHEXIDINE GLUCONATE 4% 118 ML TOPICAL LIQUID TP SCH (20:34)
[2022-02-18] MEDS: SENNA 187 MG TABLET PO SCH (20:34)
[2022-02-19] VITALS (13 sets, daily range): BP systolic 109–142; BP diastolic 62–93
[2022-02-19] MEDS: ACETAMINOPHEN 325 MG TABLET PO PRN (05:06)
[2022-02-19] MEDS: DOCUSATE SODIUM 100 MG CAPSULE PO SCH ×2 (09:00→21:00)
[2022-02-19] MEDS: OXYGEN THERAPY IH SCH ×2 (09:13→20:00)
[2022-02-19] MEDS: ETHYL ALCOHOL 62% ANTISEPTIC NASAL SANITIZER 0.6 ML AMPUL NASAL SCH ×2 (09:13→21:57)
[2022-02-19] MEDS: FOLIC ACID 1 MG TABLET PO SCH (09:14)
[2022-02-19] MEDS: PYRIDOXINE HCL 50 MG TABLET PO SCH (09:14)
[2022-02-19] MEDS: LANSOPRAZOLE 30 MG CAPSULE PO SCH (09:14)
[2022-02-19] MEDS: ATORVASTATIN CALCIUM 20 MG TABLET PO SCH (09:15)
[2022-02-19] MEDS: BUMETANIDE 1 MG TABLET PO SCH (09:15)
[2022-02-19] MEDS: LevETIRAcetam 250 MG TABLET PO SCH ×2 (09:15→21:57)
[2022-02-19] MEDS ORDERED: SODIUM CHLORIDE 0.9% 1,000 ML ONE ×2 (14:36)
[2022-02-19 16:51] LABS: BASOPHILS % (AUTO) 0.4 % (0.0-2.0); EOSINOPHILS % (AUTO) 2.3 % (1.0-6.0); LYMPHOCYTES # (AUTO) 1.9 K/uL (1.0-4.8); LYMPHOCYTES % (AUTO) 34.1 % (22.0-44.0); MEAN CORPUSCULAR HEMOGLOBIN 29.3 pg (26.0-34.0); MEAN CORPUSCULAR HGB CONC 32.9 G/dL (31.0-37.0); MEAN CORPUSCULAR VOLUME 89 fL (80-100); MONOCYTES # (AUTO) 0.6 K/uL (0.1-1.0); MONOCYTES % (AUTO) 10.7 % (2.0-9.0); NEUTROPHILS % (AUTO) 52.5 % (40.0-70.0); PLATELET COUNT (AUTO) 231 K/uL (150-450); RED BLOOD CELL COUNT(AUTO) 2.28 MIL/uL (4.50-5.90); RED CELL DISTRIBUTION WIDTH 16.5 % (11.5-14.5)
[2022-02-19 16:53] LABS: HEMATOCRIT 20.3 % (41-53); HEMOGLOBIN 6.7 g/dL (13.5-17.5)
[2022-02-19 16:57] LABS: ALBUMIN 2.8 g/dL (3.4-5.0); BILIRUBIN,TOTAL 0.2 mg/dL (0.1-1.0); CALCIUM, TOTAL 9.3 mg/dL (8.8-10.5); CREATININE 7.16 mg/dL (0.60-1.30); MAGNESIUM 1.7 mg/dL (1.80-2.40); PHOSPHORUS 3.1 mg/dL (2.5-4.9); POTASSIUM 4.9 mmol/L (3.5-5.1); TOTAL PROTEIN, SERUM 6.9 g/dL (6.4-8.2)
[2022-02-19] MEDS: SENNA 187 MG TABLET PO SCH (21:00)
[2022-02-19] MEDS: CHLORHEXIDINE GLUCONATE 4% 118 ML TOPICAL LIQUID TP SCH (21:57)
[2022-02-20] VITALS: BP 133/75
[2022-02-20] MEDS: ETHYL ALCOHOL 62% ANTISEPTIC NASAL SANITIZER 0.6 ML AMPUL NASAL SCH (08:00)
[2022-02-20] MEDS: BUMETANIDE 1 MG TABLET PO SCH (08:00)
[2022-02-20] MEDS: LevETIRAcetam 250 MG TABLET PO SCH (08:01)
[2022-02-20] MEDS: ATORVASTATIN CALCIUM 20 MG TABLET PO SCH (08:01)
[2022-02-20] MEDS: FOLIC ACID 1 MG TABLET PO SCH (08:01)
[2022-02-20] MEDS: DOCUSATE SODIUM 100 MG CAPSULE PO SCH (08:01)
[2022-02-20] MEDS: PYRIDOXINE HCL 50 MG TABLET PO SCH (08:02)
[2022-02-20] MEDS: LANSOPRAZOLE 30 MG CAPSULE PO SCH (08:02)
[2022-02-20 08:45] LABS: BASOPHILS % (AUTO) 0.3 % (0.0-2.0); EOSINOPHILS % (AUTO) 2.9 % (1.0-6.0); HEMATOCRIT 23.4 % (41-53); HEMOGLOBIN 7.9 g/dL (13.5-17.5); LYMPHOCYTES % (AUTO) 37.5 % (22.0-44.0); MEAN CORPUSCULAR HEMOGLOBIN 29.7 pg (26.0-34.0); MEAN CORPUSCULAR HGB CONC 33.6 G/dL (31.0-37.0); MEAN CORPUSCULAR VOLUME 88 fL (80-100); MONOCYTES # (AUTO) 0.5 K/uL (0.1-1.0); MONOCYTES % (AUTO) 9.6 % (2.0-9.0); NEUTROPHILS # (AUTO) 2.7 K/uL (1.8-7.7); NEUTROPHILS % (AUTO) 49.7 % (40.0-70.0); PLATELET COUNT (AUTO) 250 K/uL (150-450); RED BLOOD CELL COUNT(AUTO) 2.65 MIL/uL (4.50-5.90); RED CELL DISTRIBUTION WIDTH 16.3 % (11.5-14.5)
[2022-02-20 08:52] LABS: CALCIUM, TOTAL 9.6 mg/dL (8.8-10.5); CREATININE 4.69 mg/dL (0.60-1.30)
[2022-02-20 08:54] LABS: MAGNESIUM 1.6 mg/dL (1.80-2.40); PHOSPHORUS 3.1 mg/dL (2.5-4.9)
[2022-02-20 11:53] VITALS: BP 128/79
[2022-02-20] MEDS ORDERED: HEPARIN SODIUM,PORCINE 1,000 UNITS/ML VIAL IVP ONE (12:36)
== END 2022-02-20 12:37 | disposition home or self-care (01) | DRG 981 ==
LOC: 2WR 18:26
PROVIDERS: ADMIT Physical Medicine & Rehabilitation; ATTEND Physical Medicine & Rehabilitation
PROC: 5A1D70Z Performance of Urinary Filtration, Intermittent, Less than 6 Hours Per Day (ICD-10-PCS; 2022-01-31)
PROC: 5A1D70Z Performance of Urinary Filtration, Intermittent, Less than 6 Hours Per Day (ICD-10-PCS; 2022-02-05)
PROC: 5A1D70Z Performance of Urinary Filtration, Intermittent, Less than 6 Hours Per Day (ICD-10-PCS; 2022-02-07)
PROC: 5A1D70Z Performance of Urinary Filtration, Intermittent, Less than 6 Hours Per Day (ICD-10-PCS; 2022-02-10)
PROC: 5A1D70Z Performance of Urinary Filtration, Intermittent, Less than 6 Hours Per Day (ICD-10-PCS; 2022-02-12)
PROC: 5A1D70Z Performance of Urinary Filtration, Intermittent, Less than 6 Hours Per Day (ICD-10-PCS; 2022-02-14)
PROC: 03180ZD Bypass Left Brachial Artery to Upper Arm Vein, Open Approach (ICD-10-PCS; principal; 2022-02-16 16:40)
PROC: 5A1D70Z Performance of Urinary Filtration, Intermittent, Less than 6 Hours Per Day (ICD-10-PCS; 2022-02-17)
PROC: 5A1D70Z Performance of Urinary Filtration, Intermittent, Less than 6 Hours Per Day (ICD-10-PCS; 2022-02-19)
DX: I61.9 Nontraumatic intracerebral hemorrhage, unspecified (principal); J96.00 Acute respiratory failure, unspecified whether with hypoxia or hypercapnia; K26.4 Chronic or unspecified duodenal ulcer with hemorrhage; N17.0 Acute kidney failure with tubular necrosis; N18.6 End stage renal disease; D80.1 Nonfamilial hypogammaglobulinemia; E87.1 Hypo-osmolality and hyponatremia; I12.0 Hypertensive chronic kidney disease with stage 5 chronic kidney disease or end stage renal disease; I69.351 Hemiplegia and hemiparesis following cerebral infarction affecting right dominant side; Z99.11 Dependence on respirator [ventilator] status; D63.1 Anemia in chronic kidney disease; Z20.822 Contact with and (suspected) exposure to COVID-19; D89.0 Polyclonal hypergammaglobulinemia; E78.5 Hyperlipidemia, unspecified; E83.52 Hypercalcemia; G31.84 Mild cognitive impairment of uncertain or unknown etiology; G40.909 Epilepsy, unspecified, not intractable, without status epilepticus; I25.10 Atherosclerotic heart disease of native coronary artery without angina pectoris; E21.3 Hyperparathyroidism, unspecified; K21.00 Gastro-esophageal reflux disease with esophagitis, without bleeding; L89.90 Pressure ulcer of unspecified site, unspecified stage; R13.12 Dysphagia, oropharyngeal phase; R31.0 Gross hematuria; Z79.899 Other long term (current) drug therapy; Z82.49 Family history of ischemic heart disease and other diseases of the circulatory system; Z83.3 Family history of diabetes mellitus; Z93.0 Tracheostomy status; Z99.2 Dependence on renal dialysis
CPT/HCPCS: 50200; 74230; 76770; 78306; 80048; 80053; 81001; 81002; 82306; 82330; 82397; 82570; 82652; 82728; 82784; 83036; 83540; 83550; 83735; 83883; 83970; 84100; 84155; 84156; 84165; 84166; 85025; 85610; 85730; 86334; 86335; 86850; 86860; 86870; 86880; 86900; 86901; 86902; 86906; 86970; 86971; 86999; 87081; 87340; 88300; 90935; 92507; 92523; 92526; 92611; 93005; 93970; 97110; 97112; 97116; 97163; 97167; 97530; 97535; 99366; A9503; J0690; J0885; J1644; J2250; J2310; J3010; J3490; J7030; 36415-L1; 36415-TC; Z7610